=== PATIENT | female | born 1960 | race Asian ===

== ENCOUNTER 2018-12-23 12:48 | Inpatient (IN) | payer BC, OTHER ==
[~2018-12-23] VITALS: Ht 147.3 cm; Wt 45.5 kg
[2018-12-23] MEDS ORDERED: hydrALAZINE HCL 20 MG/ML VL IV ONE (16:30)
[2018-12-23 16:38] LABS: Basophils # (auto) 0 uL; Basophils % (auto) 0.1 % (0.0-2.0); Eosinophils # (auto) 0 uL; Hemoglobin 13.5 g/dL (12.2-16.2); Lymphocytes # (auto) 0.8 uL; Mean Corpuscular Hemoglobin 31.7 pg (28.0-32.0); Mean Corpuscular Hgb Conc. 33.9 g/dL (32.0-36.0); Mean Corpuscular Volume 93.6 fL (80.0-100.0); Monocytes # (auto) 0.5 uL; Monocytes % (auto) 3.9 % (0.0-12.0); Neutrophils # (auto) 11.3 uL; Platelet Count (auto) 182 10^3/uL (140-450); Red Blood Cells 4.27 10^6/uL (4.0-5.20); Red Cell Distribution Width 13.7 % (11.8-14.3); White Blood Cell 12.6 10^3/uL (4.4-10.8)
[2018-12-23 16:53] LABS: Albumin 4.6 g/dL (3.4-5.0); BUN/Creatinine Ratio 30.4; Calcium 9.5 mg/dL (8.5-10.1); Potassium 3.2 mmol/L (3.5-5.1)
[2018-12-23 16:57] LABS: Bilirubin, Total 1.8 mg/dL (0.2-1.0); Total Protein 8.7 g/dL (6.4-8.2)
[2018-12-23] MEDS ORDERED: IOHEXOL 300 MG/ML 100ML BOTTLE IJ ONE (17:18)
[2018-12-23] MEDS ORDERED: TEMAZEPAM 15 MG CAP PO PRN (18:00)
[2018-12-23] MEDS ORDERED: ONDANSETRON HCL 4 MG/2 ML VIAL IV ONE (18:00)
[2018-12-23] MEDS ORDERED: NITROGLYCERIN 0.4 MG SL TAB SL PRN (18:00)
[2018-12-23] MEDS ORDERED: PROMETHAZINE HCL 25 MG/ML 1ML IV PRN (18:00)
[2018-12-23] MEDS ORDERED: LORazepam 0.5 MG TAB PO PRN (18:00)
[2018-12-23] MEDS ORDERED: ACETAMINOPHEN 500 MG TAB PO PRN (18:00)
[2018-12-23] MEDS ORDERED: MORPHINE SULF INJ 2 MG/ML SYRINGE 1ML IV ONE (18:00)
[2018-12-23] MEDS ORDERED: cefTRIAXone 1GM/50ML D5W 50 ML IV ONE (18:00)
[2018-12-23] MEDS ORDERED: MORPHINE SULF INJ 2 MG/ML SYRINGE 1ML IV PRN (18:00)
[2018-12-23] MEDS: SODIUM CHLORIDE 0.9% 1,000 ML IV SCH (18:04)
[2018-12-23 19:10] LABS: Urine Bacteria NONE SEEN /hpf (None Seen); Urine Blood 2+ /uL (Negative); Urine Mucus FEW (None Seen); Urine Specific Gravity 1.049 (1.001-1.035); Urine WBC 5 /hpf (0 - 5)
[2018-12-23 20:02] VITALS: BP 117/85
[2018-12-23] MEDS: traMADol HCL 50 MG TAB PO PRN (20:12)
[2018-12-23] MEDS: FAMOTIDINE 20 MG TAB PO SCH (20:13)
[2018-12-23 22:00] VITALS: BP 117/85
[2018-12-23] MEDS ORDERED: LOSA-49 PO (22:55)
[2018-12-24 04:53] VITALS: BP 103/66
[2018-12-24 06:08] LABS: Basophils # (auto) 0 uL; Basophils % (auto) 0.3 % (0.0-2.0); Eosinophils # (auto) 0 uL; Eosinophils % (auto) 0.2 % (0.0-7.0); Hematocrit 35.2 % (36.0-46.0); Hemoglobin 11.8 g/dL (12.2-16.2); Lymphocytes # (auto) 2.3 uL; Lymphocytes % (auto) 24.1 % (10.0-50.0); Mean Corpuscular Hemoglobin 31.4 pg (28.0-32.0); Mean Corpuscular Hgb Conc. 33.6 g/dL (32.0-36.0); Mean Corpuscular Volume 93.6 fL (80.0-100.0); Monocytes % (auto) 10.2 % (0.0-12.0); Neutrophils # (auto) 6.4 uL; Neutrophils % (auto) 65.2 % (37.0-80.0); Nucleated Red Blood Cells % 0.2 %; Platelet Count (auto) 168 10^3/uL (140-450); Red Blood Cells 3.76 10^6/uL (4.0-5.20); White Blood Cell 9.8 10^3/uL (4.4-10.8)
[2018-12-24 09:11] VITALS: BP 102/62
[2018-12-24] MEDS: SODIUM CHLORIDE 0.9% 1,000 ML IV SCH ×2 (09:47→13:56)
[2018-12-24] MEDS: cefTRIAXone 1GM/50ML D5W 50 ML IV SCH (09:47)
[2018-12-24] MEDS: FAMOTIDINE 20 MG TAB PO SCH ×2 (09:47→20:37)
--- NOTE | 2018-12-24 11:26 | NUR ---
Dr. Carroll at bedside Per Dr. Carroll , patient does not need another CT scan and made are of K 3.2. Received new orders, noted and carried out.
[2018-12-24] MEDS ORDERED: POTASSIUM CHL 20 Meq TABLET PO ONE (11:30)
[2018-12-24 12:14] VITALS: BP 103/73
[2018-12-24 17:06] VITALS: BP 138/87
--- NOTE | 2018-12-24 19:25 | NUR ---
Opening Shift Note Assumed care of patient, awake and alert. No S/S of distress/SOB or pain. Instructed on POC and to call for assist PRN, will continue to monitor for changes Q1hr and PRN. Patient and family asking for Urology consult, informed them that a referral was already sent and we are just waiting for the Doctor to come.
[2018-12-24] MEDS ORDERED: LOSARTAN POTASSIUM 50 MG TAB PO ONE (20:15)
[2018-12-24] MEDS: traMADol HCL 50 MG TAB PO PRN (20:35)
[2018-12-24 22:00] VITALS: BP 140/79
[2018-12-25] MEDS: traMADol HCL 50 MG TAB PO PRN (02:02)
[2018-12-25] MEDS: SODIUM CHLORIDE 0.9% 1,000 ML IV SCH ×3 (02:03→19:56)
[2018-12-25 05:00] VITALS: BP 144/77
[2018-12-25 09:00] VITALS: BP 144/90
--- NOTE | 2018-12-25 09:35 | NUR ---
Dr. Duke at bedside.
[2018-12-25] MEDS: FAMOTIDINE 20 MG TAB PO SCH ×2 (09:51→22:00)
[2018-12-25] MEDS: cefTRIAXone 1GM/50ML D5W 50 ML IV SCH (09:51)
[2018-12-25] MEDS: LOSARTAN POTASSIUM 50 MG TAB PO SCH (09:51)
--- NOTE | 2018-12-25 10:00 | NUR ---
Dr. MALONEY at bedside.
[2018-12-25] MEDS ORDERED: LACTULOSE 20Gm/30ML SOLN PO ONE (10:30)
[2018-12-25] MEDS ORDERED: LACTULOSE 20Gm/30ML SOLN PO PRN (10:30)
[2018-12-25 12:08] VITALS: BP 136/88
[2018-12-25 16:55] VITALS: BP 162/92
--- NOTE | 2018-12-25 19:44 | NUR ---
Opening Shift Note Assumed care of patient resting in bed. No S/S of distress/SOB or pain. Instructed on POC and to call for assist PRN, will continue to monitor for changes Q1hr and PRN. Family at bedside. Bed in low position, call shah within reach.
[2018-12-25 22:00] VITALS: BP 137/80
[2018-12-26] MEDS: traMADol HCL 50 MG TAB PO PRN ×3 (03:31→19:37)
[2018-12-26 05:00] VITALS: BP 141/70
[2018-12-26] MEDS: SODIUM CHLORIDE 0.9% 1,000 ML IV SCH ×3 (05:37→22:11)
[2018-12-26 08:00] VITALS: BP 135/100
[2018-12-26] MEDS: cefTRIAXone 1GM/50ML D5W 50 ML IV SCH (08:42)
[2018-12-26] MEDS: LOSARTAN POTASSIUM 50 MG TAB PO SCH (10:32)
[2018-12-26] MEDS: FAMOTIDINE 20 MG TAB PO SCH ×2 (10:32→19:36)
[2018-12-26 12:00] VITALS: BP 164/112
[2018-12-26 13:12] LABS: INR 0.98 (0.9-1.15); Prothrombin Time 10.5 sec (9.27-12.13)
[2018-12-26 16:00] VITALS: BP 157/104
--- NOTE | 2018-12-26 19:47 | NUR ---
Opening Shift Note Assumed care of patient, awake and alert. No S/S of distress/SOB or pain. Instructed on POC and to call for assist PRN, will continue to monitor for changes Q1hr and PRN. Consent signed for left nephrectomy in am, blood transfusion and anesthesia. Informed patient of NPO after midnight. Call shah with in reach, bed in low position.
[2018-12-26 22:00] VITALS: BP 150/91
[2018-12-27 05:00] VITALS: BP 132/84
[2018-12-27] MEDS: SODIUM CHLORIDE 0.9% 1,000 ML IV SCH ×2 (07:08→21:07)
[2018-12-27 07:38] VITALS: BP 136/75
--- NOTE | 2018-12-27 08:00 | NUR ---
OPENING SHIFT NOTE ASSUMED CARE OF THE PATIENT FROM THE GAMMA OPERATOR RN. THE PATIENT IS A&OX4, NO SIGNS OR SYMPTOMS OF DISTRESS. EDUCATED THE PATIENT ON POC AND PATIENT VERBALIZED UNDERSTANDING. THE PATIENT'S CALL LIGHT IS WITHIN REACH AND BED IS IN THE LOWEST, LOCKED POSITION. WILL ROUND HOURLY AND CONTINUE TO DISCHARGE.
[2018-12-27] MEDS: cefTRIAXone 1GM/50ML D5W 50 ML IV SCH (09:53)
[2018-12-27] MEDS: LOSARTAN POTASSIUM 50 MG TAB PO SCH (09:54)
[2018-12-27] MEDS: FAMOTIDINE 20 MG TAB PO SCH ×2 (09:54→21:14)
[2018-12-27] MEDS: traMADol HCL 50 MG TAB PO PRN ×2 (09:54→22:59)
[2018-12-27 11:37] VITALS: BP 141/89
--- NOTE | 2018-12-27 12:21 | NUR ---
DR. CALDERÓN SPOKE WITH THE PATIENT AND FAMILY REGARDING THE POSTPONEMENT OF THE LEFT NEPHRECTOMY. I WENT INTO THE ROOM TO EXPLAIN THAT THE PATIENT CAN EAT AND WOULD BE RECEIVING A LUNCH TRAY. THE PATIENT AND FAMILY ARE UPSET AND FRUSTRATED THAT THE SURGERY WILL NOT TAKE PLACE. THE FAMILY IS CONCERNED REGARDING INSURANCE AND ABOUT MONEY. I CALLED DR. Donald DARLING AND EXPLAINED THE PATIENT WAS UPSET, BUT HE IS WITH PATIENTS RIGHT NOW AND UNABLE TO SPEAK WITH THE PATIENT. WILL CONTINUE TO MONITOR.
--- NOTE | 2018-12-27 14:49 | NUR ---
Pt. is a 58 year old alert and oriented female. Pt. states she lives alone and able to function independently. Pt. does not own DME and able to walk with no assistance. Pt. states that her primary physician in Dr. Teresa Walls. Pt. states that she does not have any additional family members in the area, however will be provided with transportation by her boyfriend Moody Aguirre. Pt. will be returning home upon discharge. Addendum: 12/27/18 at 1454 by PRACHI SOTO Amended: Links added.
--- NOTE | 2018-12-27 14:56 | NUR ---
NUTRITION ASSESSMENT NOTES Please refer to link notes of nutrition screen form filed under the intervention section of the plan of care for further details. Est. Needs: 1200 kcal to 1450 kcal (25-30 kcal/kgBW), 49 gms to 58 gms pro (1.0-1.2 gms/kgBW). Will continue to monitor pertinent labs and reassess nutrient need prn Thank you. Addendum: 12/27/18 at [address] Amended: Links added.
--- NOTE | 2018-12-27 15:30 | NUR ---
CALLED DR. Donald DARLING THE PATIENT WOULD LIKE TO BE DISCHARGED BECAUSE UROLOGY HAS RELEASED THE PATIENT TO COME BACK IN A WEEK FOR THE LEFT NEPHRECTOMY. THE PHYSICIAN STATED THAT THE PATIENT WILL BE DISCHARGED IN THE MORNING.
[2018-12-27 16:46] VITALS: BP 147/94
--- NOTE | 2018-12-27 17:45 | NUR ---
THE PATIENT ASKED TO SPEAK WITH SALES REPRESENTATIVE METALS. PAGED SALES REPRESENTATIVE METALS AND HE IS CURRENTLY WITH THE PATIENT AND THE FAMILY.
--- NOTE | 2018-12-27 18:00 | NUR ---
TRIED TO PAGE DR. Donald DARLING PER ICING MIXER. NO LONGER AVAILABLE.
--- NOTE | 2018-12-27 20:00 | NUR ---
RECEIVED PT IN BED, A/O X4, IN NO ACUTE DISTRESS, DENIES PAIN/DISCOMFORT. SISTER VIOLY AT BEDSIDE. POC REVIEWED WITH PT AND FAMILY, BOTH VERBALIZED UNDERSTANDING. CALL LIGHT WITHIN REACH, ENCOURAGED TO CALL IF HELP IS NEEDED. SIDE RAILS UP X2, BED IN LOWEST LOCKED POSITION, NON SKID SOCKS ON. CONTINUE CARE.
[2018-12-27 22:00] VITALS: BP 142/81
[2018-12-28 05:00] VITALS: BP 128/76
--- NOTE | 2018-12-28 07:35 | NUR ---
Patient walking to the bathroom, steady gait noted.
[2018-12-28] MEDS: cefTRIAXone 1GM/50ML D5W 50 ML IV SCH (08:38)
[2018-12-28 09:00] VITALS: BP 148/97
[2018-12-28] MEDS: SODIUM CHLORIDE 0.9% 1,000 ML IV SCH (09:08)
--- NOTE | 2018-12-28 09:38 | NUR ---
Donald Landa at bedside. Patient is upset that her surgery did not push through, insisted that she wants the surgery. explained to patient that as per SHERRY Samuel's notes, patient okay to go home, patient has to call Dr. Champagne's office on Wednesday to set up the appointment for the procedure. Patient asked for doctor's notes of her stay in the hospital. Sister also asked for a doctor's notes to present to her employer because she took off from work expecting her sister (patient) will have the surgery. Explained to sister that she may ask the office of Dr. Champagne for doctor's notes.
--- NOTE | 2018-12-28 10:00 | NUR ---
Informed patient that she will have to set up an appointment with Sarah Huerta on Wednesday, P# [phone], [address] [place] [address], [facility], [place], [place]. Family members at bedside.
[2018-12-28] MEDS: LOSARTAN POTASSIUM 50 MG TAB PO SCH (10:17)
[2018-12-28] MEDS: FAMOTIDINE 20 MG TAB PO SCH (10:17)
[2018-12-28 11:15] VITALS: BP 148/97
[2018-12-28 11:32] VITALS: BP 148/97
--- NOTE | 2018-12-28 12:15 | NUR ---
Discharge instructions given as ordered. Encourage to follow up with PMD as instructed. All questions and concerns addressed. Patient verbalized understanding. Medication reconciliation form completed and copy given to patient. IV removed with catheter intact, pressure dressing applied. Telemetry unit returned to [facility]. Patient taken to vehicle via wheelchair with all personal belongings, accompanied by staff and family member. No distress noted at time of departure.
== END 2018-12-28 12:15 | disposition home or self-care (01) | DRG 687 ==
LOC: ER 12:56 → TELE 17:59 → TELE-EAST 19:49
PROVIDERS: ADMIT Internal Medicine; ATTEND Family Medicine
DX: D17.71 Benign lipomatous neoplasm of kidney (principal); N39.0 Urinary tract infection, site not specified; N28.89 Other specified disorders of kidney and ureter; N20.0 Calculus of kidney; E87.6 Hypokalemia; I10 Essential (primary) hypertension; N28.1 Cyst of kidney, acquired; K57.90 Diverticulosis of intestine, part unspecified, without perforation or abscess without bleeding; E11.65 Type 2 diabetes mellitus with hyperglycemia; Z82.49 Family history of ischemic heart disease and other diseases of the circulatory system; Z83.3 Family history of diabetes mellitus
CPT/HCPCS: 36415; 71045; 74176; 74177; 80053; 81001; 83690; 85025; 85610; 85730; 86850; 86900; 86901; 87086; 96365; 96375; G0378; J0696; J2405

== ENCOUNTER 2024-08-15 16:14 | Emergency (ER) | payer BC, OTHER ==
[~2024-08-15] VITALS: Ht 152.4 cm; Wt 68.0 kg
[~2024-08-15 16:14] MED LIST: LOSA-535 PO
--- NOTE | 2024-08-15 17:32 | ED.PDOC ---
History of Present Illness HPI Comments 64-year-old female with PMHx HTN brought in by EMS presents with a chief complaint of flank pain and muscle pain. Patient states that her pain is localized to her left auxiliary region, radiates to her left flank, and started suddenly. Patient mentions that she was feeling feverish on Wednesday and had taken Tylenol, but otherwise has not been feeling ill recently. Patient reports that the pain began spontaneously. Patient had a left nephrectomy. No other symptoms or modifying factors present at this time. 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 Family History Family History: Unknown Social History Smoker: Non-Smoker Alcohol: Denies ETOH Use Drugs: Denies Drug Use Lives In: Home Constitutional: denies: chills, diaphoresis, fatigue, fever, malaise, sweats, weakness, others EENTM: denies: blurred vision, double vision, ear bleeding, ear discharge, ear drainage, ear pain, ear ringing, eye pain, eye redness, hearing loss, mouth pain, mouth swelling, nasal discharge, nose bleeding, nose congestion, nose pain, photophobia, tearing, throat pain, throat swelling, voice changes, others Respiratory: denies: cough, hemoptysis, orthopnea, SOB at rest, shortness of breath, SOB with excertion, stridor, wheezing, others Cardiovascular: denies: chest pain, dizzy spells, diaphoresis, Dyspnea on exertion, edema, irregular heart beat, left arm pain, lightheadedness, palpitations, PND, syncope, others Gastrointestinal: denies: abdomen distended, abdominal pain, blood streaked bowels, constipated, diarrhea, dysphagia, difficulty swallowing, hematemesis, melena, nausea, poor appetite, poor fluid intake, rectal bleeding, rectal pain, vomiting, others Genitourinary: reports: flank pain; denies: abnormal vagina bleeding, burning, dyspareunia, dysuria, frequency, hematuria, incontinence, pain, , vagina discharge, urgency, others Neurological: denies: dizziness, fainting, headache, left sided numbness, left sided weakness, numbness, paresthesia, pre-existing deficit, right sided numbness, right sided weakness, seizure, speech problems, tingling, tremors, weakness, others Musculoskeletal: reports: muscle pain; denies: back pain, gout, joint pain, joint swelling, muscle stiffness, neck pain, others Integumetry: denies: bruises, change in color, change in hair/nails, dryness, laceration, lesions, lumps, rash, wounds, others Allergic/Immunocompromised: denies: Difficulty Healing, Frequent Infections, Hives, Itching, others Hematologic/Lymphatic: denies: anemia, blood clots, easy bleeding, easy bruising, swollen glands, others Endocrine: denies: excessive hunger, excessive sweating, excessive thirst, excessive urination, flushing, intolerance to cold, intolerance to heat, unexplained weight gain, unexplained weight loss, others Psychiatric: denies: anxiety, bipolar disorder, depression, hopeless, panic disorder, schizophrenia, sleepless, suicidal, others All Other Systems: Reviewed and Negative Physical Exam General Appearance: No Apparent Distress, Normal HEENT: Normal ENT Inspection, Pharynx Normal, TMs Normal Neck: Full Range of Motion, Non-Tender, Normal, Normal Inspection Respiratory: Chest Non-Tender, Lungs Clear, No Accessory Muscle Use, No Respiratory Distress, Normal Breath Sounds Cardiovascular: No Edema, No JVD, No Murmur, No Gallop, Normal Peripheral Pulses, Regular Rate/Rhythm Breast Exam: Deferred Gastrointestinal: No Organomegaly, Non Tender, No Pulsatile Mass, Normal Bowel Sounds, Soft Genitalia: Deferred Pelvic: Deferred Rectal: Deferred Extremities: No calf tenderness, Normal capillary refill, Normal inspection, Normal range of motion, Non-tender, No pedal edema Musculoskeletal : Apperance: Normal Neurologic: Alert, skin care consultant II-XII nml as Tested, No Motor Deficits, Normal Affect, Normal Mood, No Sensory Deficits Cerebellar Function: Normal Reflexes: Normal Skin: Dry, Normal Color, Warm Lymphatic: No Adenopathy Was a procedure done? Was a procedure done?: No Differential Dx Considerations may include: Fracture contusion sprain X-Ray, Labs, Meds, VS Vital Signs Date Time Temp Pulse Resp B/P (MAP) Pulse Ox O2 Delivery O2 Flow Rate FiO2 08/15/24 18:19 98.2 106 18 142/98 (113) 96 98.2 08/15/24 18:19 106 18 96 Room Air 08/15/24 18:16 109 18 95 08/15/24 16:37 101 08/15/24 16:37 98.7 108 14 166/106 (126) 65 Lab Test 08/15/24 18:24 Range/Units White Blood Count 12.4 H 4.4-10.8 10^3/uL Red Blood Count 4.20 4.0-5.20 10^6/uL Hemoglobin 12.8 12.2-16.2 g/dL Hematocrit 38.5 36.0-46.0 % Mean Corpuscular Volume 91.7 80.0-100.0 fL Mean Corpuscular Hemoglobin 30.6 28.0-32.0 pg Mean Corpuscular Hemoglobin Concent 33.3 32.0-36.0 g/dL Red Cell Distribution Width 14.8 H 11.8-14.3 % Platelet Count 249 140-450 10^3/uL Mean Platelet Volume 8.1 6.9-10.8 fL Neutrophils (%) (Auto) 80.0 37.0-80.0 % Lymphocytes (%) (Auto) 12.3 10.0-50.0 % Monocytes (%) (Auto) 7.4 0.0-12.0 % Eosinophils (%) (Auto) 0.1 0.0-7.0 % Basophils (%) (Auto) 0.2 0.0-2.0 % Neutrophils # (Auto) 10.0 H 1.6-8.6 10 ^3/uL Lymphocytes # (Auto) 1.5 0.4-5.4 10 ^3/uL Monocytes # (Auto) 0.9 0-1.3 10 ^3/uL Eosinophils # (Auto) 0 0-0.8 10 ^3/uL Basophils # (Auto) 0 0-0.2 10 ^3/uL Nucleated Red Blood Cells 0.1 % Sodium Level 139 136-145 mmol/L Potassium Level 3.8 3.5-5.1 mmol/L Chloride Level 105 98-107 mmol/L Carbon Dioxide Level 25 20-31 mmol/L Anion Gap 9 5-15 Blood Urea Nitrogen 19 9-23 mg/dL Creatinine 1.19 H 0.550-1.02 mg/dL Glomerular Filtration Rate Calc 52 >90 mL/min BUN/Creatinine Ratio 16.0 10.0-20.0 Serum Glucose 123 H 74-106 mg/dL Calcium Level 9.8 8.7-10.4 mg/dL Troponin I High Sensitivity 4 </=34 ng/L Current Medications Medications (Trade) Dose Ordered Sig/Ashu Route Start Time Stop Time Status Last Admin Acetaminophen/ Hydrocodone Bitart ([place] 5/325MG Tab) 1 tab ONCE ONCE PO 08/15/24 17:30 08/15/24 17:31 DC 08/15/24 18:17 White blood cell count is 12.4. CBC is normal. CMP is normal Troponin is four. The patient was given [place] and discharged. She can follow up with the primary care physician in 1-2 days. Time of 1ST Reevaluation: 17:52 Reevaluation 1ST: Unchanged Time of 2ND Reevaluation: 19:44 Reevaluation 2ND: Improved Patient Education/Counseling: Diagnosis, Treatment, Prognosis Family Education/Counseling: Diagnosis, Treatment, Prognosis Departure 1 Departure Time of Disposition: 19:44 Impression: Primary Impression: Chest wall pain Disposition: 01 HOME / SELF CARE / HOMELESS Condition: Stable Additional Instructions: Reassessed patient, vital signs stable. Denies any new symptoms. Patient is able to tolerate PO and ambulate/be mobile at their baseline without concern. Risks and benefits of all medications given or prescribed, if any, discussed. All lab work, imaging and diagnostic studies were reviewed by me. The patient was counseled extensively on my clinical impression, diagnosis, expected course of the disease, and plan, including their follow-up care. Will discharge patient. Patient instructed to follow up with Primary Care Physician within 24-48 hours. Strict return precautions given for further exacerbation of symptoms or for new symptoms. The patient was given the opportunity to ask questions and all questions were answered by myself and the nursing/tech staff. Patient is in agreement with the care plan. The patient verbally expressed understanding of the discharge instructions, including the reasons to return to the Emergency Department. e-Prescriptions Ibuprofen (Advil) 200 Mg Cap 800 MG PO TIDWMEALS, #30 CAP Prov: FENG STAHL MD 08/15/24 Discharged With: Self Critical Care Note Critical Care Time?: No Stability Stability form required: No I personally scribed for ARELIS JOHNSON MD ([email or web address]) on 08/15/24 at 17:32. Elec tronically submitted by Shaan Mims ([email or web address]). ARELIS JOHNSON MD Aug 15, 2024 17:32 FENG STAHL MD Aug 15, 2024 19:48
--- NOTE | 2024-08-15 18:02 | DVH ---
XY CHEST TWO VIEWS ROUTINE CLINICAL HISTORY: left sided chest pain COMPARISON: None TECHNIQUE: Frontal and lateral view of the chest was obtained FINDINGS: Lines and Tubes: None Lungs: No focal consolidation. Pleura: No effusion. No pneumothorax. Cardiomediastinal contours:Mild cardiomegaly. Bones: No acute osseous abnormality. IMPRESSION: 1. Mild cardiomegaly. HS:Y
[2024-08-15] MEDS: HYDROcodone-ACET 5/325MG TAB PO ONE (18:17)
--- NOTE | 2024-08-15 18:32 | ECG ---
[facility] Test Date: 2024-08-15 Test Time: 16:37:03 [facility] ER Room: Gender: F Hemodialysis Charge Nurse: NATIVIDAD : 1960 Requested By: ARELIS JOHNSON Order Number: [id number] Reading MD: Roe Andrade Measurements Intervals [place] Rate: 101 P: 43 NM: 158 QRS: -32 QRSD: 76 T: 30 QT: 352 QTc: 457 Interpretive Statements Sinus tachycardia Low voltage, precordial leads Left ventricular hypertrophy Anterior Q waves, possibly due to LVH Electronically Signed On 08-16-2024 14:17:51 PST by Roe Andrade Please click the below link to view image of tracing.
[2024-08-15 18:44] LABS: Basophils # (auto) 0 10 ^3/uL (0-0.2); Basophils % (auto) 0.2 % (0.0-2.0); Eosinophils # (auto) 0 10 ^3/uL (0-0.8); Eosinophils % (auto) 0.1 % (0.0-7.0); Hematocrit 38.5 % (36.0-46.0); Hemoglobin 12.8 g/dL (12.2-16.2); Lymphocytes # (auto) 1.5 10 ^3/uL (0.4-5.4); Lymphocytes % (auto) 12.3 % (10.0-50.0); Mean Corpuscular Hemoglobin 30.6 pg (28.0-32.0); Mean Corpuscular Hgb Conc. 33.3 g/dL (32.0-36.0); Mean Corpuscular Volume 91.7 fL (80.0-100.0); Monocytes # (auto) 0.9 10 ^3/uL (0-1.3); Monocytes % (auto) 7.4 % (0.0-12.0); Nucleated Red Blood Cells % 0.1 %; Platelet Count (auto) 249 10^3/uL (140-450); Red Cell Distribution Width 14.8 % (11.8-14.3); White Blood Cell 12.4 10^3/uL (4.4-10.8)
[2024-08-15 18:49] LABS: Chloride 105 mmol/L (98-107); Potassium 3.8 mmol/L (3.5-5.1); Sodium 139 mmol/L (136-145)
[2024-08-15 18:50] LABS: Anion Gap 9 (5-15); Calcium 9.8 mg/dL (8.7-10.4); Carbon Dioxide 25 mmol/L (20-31)
[2024-08-15 18:55] LABS: Blood Urea Nitrogen 19 mg/dL (9-23); Glucose 123 mg/dL (74-106)
[2024-08-15] MEDS ORDERED: HYDR-4902 PO (19:46)
[2024-08-15] MEDS ORDERED: IBUP200C14 PO (19:48)
[2024-08-15 22:19] VITALS: BP 155/92; PULSE 100; RESP 18; TEMP 98.7; O2SAT 98
== END 2024-08-15 22:21 | disposition home or self-care (01) ==
LOC: ER 16:14 → EDBD 16:14 → ER 22:20
DX: R07.89 Other chest pain (principal); I10 Essential (primary) hypertension; Z90.5 Acquired absence of kidney
CPT/HCPCS: 36415; 71046; 80048; 84484; 85025; 93005